=== PATIENT | male | born 1935 | race Caucasian/White ===

== ENCOUNTER 2021-02-02 13:14 | Outpatient (CLI) | payer MEDICARE, OTHER, SELFPAY ==
[2021-02-02 14:00] VITALS: PULSE 72; O2SAT 98
[2021-02-02 14:05] VITALS: PULSE 90; O2SAT 86
[2021-02-02 14:10] VITALS: PULSE 94; O2SAT 88
[2021-02-02 14:15] VITALS: PULSE 96; O2SAT 91
[2021-02-02 14:25] VITALS: PULSE 74; O2SAT 97
--- NOTE | 2021-02-02 14:47 | HOMEO2EVAL ---
Evaluation was performed at [facility] Home Oxygen Evaluation RC: Home Oxygen (O2) Evaluation Start: 02/02/21 14:43 Freq: Status: Active Protocol: RPE Activity Type Activity Date Activity User E-Sign Co-Sign Detail Recorded Client Recorded Date Recorded By Document 02/02/21 14:00 [email or web address] [email or web address] 02/02/21 14:47 DJO Document 02/02/21 14:05 [email or web address] [email or web address] 02/02/21 14:47 DJO Document 02/02/21 14:10 [email or web address] [email or web address] 02/02/21 14:47 DJO Document 02/02/21 14:15 [email or web address] [email or web address] 02/02/21 14:47 DJO Document 02/02/21 14:25 [email or web address] [email or web address] 02/02/21 14:47 DJO 02/02/21 02/02/21 02/02/21 14:00 14:05 14:10 Home O2 Evaluation Test Phase Resting Exercise Exercise Oxygen Delivery Room Air Room Air Nasal Cannula Oxygen Flow Rate (L/min) 1 Pulse Oximetry (90-100 %) 98 86 L 88 L Pulse Rate (60-100 beats/min) 72 90 94 Ambulation Distance (feet) Treatment Charges O2 Evaluation - Outpatient 02/02/21 02/02/21 14:15 14:25 Home O2 Evaluation Test Phase Exercise Resting Oxygen Delivery Nasal Cannula Room Air Oxygen Flow Rate (L/min) 2 Pulse Oximetry (90-100 %) 91 97 Pulse Rate (60-100 beats/min) 96 74 Ambulation Distance (feet) 500 Treatment Charges
== END 2021-02-02 13:15 | disposition home or self-care (01) ==
LOC: ANHPFT 13:19
PROVIDERS: PCP Internal Medicine; Visit Provider Nurse Practitioner
DX: J44.9 Chronic obstructive pulmonary disease, unspecified (principal)
CPT/HCPCS: 94618

== ENCOUNTER → 2024-03-30 11:30 | Outpatient (REF) | payer MEDICARE, OTHER, SELFPAY | LOC: ANHLAB 11:30 | PROVIDERS: PCP Internal Medicine; Visit Provider Plastic Surgery | DX: C44.92 Squamous cell carcinoma of skin, unspecified (principal) | CPT/HCPCS: 88305 ==